=== PATIENT | female | born 1940 | race Caucasian/White ===

== ENCOUNTER 2018-03-09 16:32 | Observation (INO) ==
[2018-03-09] MEDS ORDERED: Naloxone 0.4 MG/ML INJ IVP PRN (21:11)
[2018-03-09] MEDS ORDERED: *HR* HYDROcodone/Acet 5/325 mg TABLET PO PRN (21:11)
[2018-03-09] MEDS ORDERED: traMADol 50 MG TABLET PO PRN (21:11)
[2018-03-09] MEDS ORDERED: Bupivacaine-MPF 0.25% 10 ML VIAL INFILT ONE (21:45)
--- NOTE | 2018-03-09 22:31 | Orthopedic Consult Note ---
Date of Encounter: 03/09/18 Time of Encounter: 22:26 History of Present Illness Chief complaint: Locked left knee HPI: Ms. Waddell is a 77 year old female who is scheduled for a left total knee arthroplasty at the [facility] on 04/16/2018. The patient has been t reated for an arthritic knee for a prolonged period of time. Patient has had previous episodes with the knee locked". After very short period of time the knee would be able to be fully extended. About 4 days ago the patient's knee "locked" and the patient has been unable to straighten the knee out since that time. This been causing a marked amount of pain. She was seen initially at [facility] and was transferred to [facility] for further evaluation and management. Pertinent orthopedic examination reveals a pleasant 77-year-old woman in minimal distress. Left knee is held flexed at about 95 degrees. No gross effusion. The knee was unable to be extended without any severe pain. Patella appears to be the primary concern. Neurosensory exam is normal. X-rays reveals a obvious flexed knee with marked amount of arthritis. Impression: Acute flexion contracture/"locked" left knee with superimposed osteoarthritis Treatment: The knee was examined and after informed consent was obtained the knee was instilled with 5 mL's of 2% lidocaine and 5% of 0.25% Marcaine utilizing sterile technique. After allowing for the local anesthetic to diminish the pain response the knee was manipulated with evangelical of extension. No excessive force was required. The patella appeared to be locked in the intercondylar region. Patient has a valgus appearing knee after the reduction. The knee was then placed into a knee immobilizer. Instructions given to the patient to minimize flexion beyond about 30 degrees and to utilize the knee immobilizer until seen and cleared by her attending surgeon at [facility]. Thank you for allowing me to seen care for Mrs. Waddell. Sincerely, Francisco Leo,DO Past Med Surg Social Fam HX - Past Medical History Medical history: arthritis, cancer, diabetes Additional medical history: Breast cancer Psychiatric history: depression - Past Surgical History Surgical History: breast surgery, hysterectomy, JALEEL/BSO, other Additional surgical history: Partial right mastectomy - Social History Smoking Status: Never smoker Smokeless Tobacco Status: No Alcohol use: none Drug use: none - Family History Mother Living Status: Cause of : Cancer Hx Family Cancer: Yes (Bladder) Father Living Status: Cause of : Cancer Hx Family Cancer: Yes (Esophogeal) Medications and Allergies Simvastatin [Zocor] 40 mg PO QPM 03/20/16 [History] Venlafaxine XR (24 HR) [Effexor XR] 75 mg PO QAM 03/20/16 [History] Allergy/AdvReac Type Severity Reaction Status Date / Time shellfish derived Allergy Anaphylaxis Verified 08/07/17 13:45 nitrofurantoin AdvReac Dizziness Verified 08/07/17 13:45 [From Furadantin] All Systems Reviewed: The remainder of the systems were reviewed and are negative Physical Exam - Constitutional Vitals: Temp Pulse Resp BP Pulse Ox 98.8 F 98 20 113/68 93 03/09/18 20:47 03/09/18 20:47 03/09/18 20:47 03/09/18 20:47 03/09/18 20:47 Results - Labs Labs: All other labs normal. - Diagnostic results Knee x-ray: image reviewed Consult Discharge Plan - Plan Referrals: Nevaeh Mcgovern MD [Primary Care Provider] -
--- NOTE | 2018-03-09 22:36 | Internal Med History&Physical ---
Date of Encounter: 03/09/18 Time of Encounter: 19:40 Internal Medicine - H&P: HPI Chief complaint: "locked left knee" Admitted From: Hospital to Hospital Transfer Plans for Post Hospital Care: Home History of present illness: Ms. Waddell is a 77 year old female who presents in transfer from [facility] ER for concerns of contracted left knee and a "locked knee". She is due to have total knee replacement at [facility] in mid March. However, she developed contracture of her left knee and has been unable to straighten her knee for the last 4 days. Pain has been increasing. She therefore came to ER today. ER staff contacted [facility] and recommended transfer to a local orthopedic surgeon for nonsurgical treatment and stabilization until she can have her surgery in mid March. She was therefore transferred here to [facility]. Upon my assessment of the patient, she is in no distress except for her left knee is contracted and she is unable to straighten it. She does have significan t pain from arthritis. She denies any numbness or weakness. She denies any other issues otherwise. In particular, she denies any chest pain, shortness of breath, vomiting, or diarrhea. After I saw patient and her , I called Dr. Leo to inform of the consult. He stated he would come in tonight to see and likely treat patient. Past Med Surg Social Fam HX - Past Medical History Attestation: Yes The following information was validated with the patient. Source: patient, old records reviewed Medical history: arthritis, cancer, diabetes Additional medical history: Breast cancer Psychiatric history: depression - Past Surgical History Surgical History: breast surgery, hysterectomy, JALEEL/BSO Additional surgical history: Partial right mastectomy - Social History Smoking Status: Never smoker Smokeless Tobacco Status: No Alcohol use: none Drug use: none Current living situation: Home Activity Level: Independent ambulation Recent Out of Country Travel Within the Last 8 Weeks: No - Family History Mother Living Status: Cause of : Cancer Hx Family Cancer: Yes (Bladder) Father Living Status: Cause of : Cancer Hx Family Cancer: Yes (Esophogeal) Internal Medicine - H&P: Meds Simvastatin [Zocor] 40 mg PO QPM 03/20/16 [History] Venlafaxine XR (24 HR) [Effexor XR] 75 mg PO QAM 03/20/16 [History] Allergy/AdvReac Type Severity Reaction Status Date / Time shellfish derived Allergy Anaphylaxis Verified 08/07/17 13:45 nitrofurantoin AdvReac Dizziness Verified 08/07/17 13:45 [From Furadantin] - Constitutional Constitutional: no chills, no fever(s) - EENT Eyes: no blurry vision, no change in vision Ears: no ear pain, no tinnitus Nose, mouth and throat: no nasal congestion, no sinus pressure - Cardiovascular Cardiovascular ROS IM: no chest pain, no dyspnea - Respiratory Respiratory: no cough, no hemoptysis, no chest congestion, no excessive phlegm production, no change in phlegm color - Gastrointestinal Gastrointestinal: no abdominal pain, no diarrhea, no hematemesis, no hematochezia, no melena, no nausea, no vomiting - Genitourinary Genitourinary: no dysuria, no flank pain, no hematuria - Musculoskeletal Musculoskeletal ROS IM: arthralgias, back pain, limited range of motion (left knee -- contracted) - Integumentary Integumentary IM: no rash - Neurological Neurological ROS: no dizziness, no focal weakness, no frequent falls, no headache(s) - Psychiatric Psychiatric: no anxiety, no depression - Endocrine Endocrine IM: no polydipsia, no polyuria - Allergic/Immunologic Allergic/Immunologic: no GI upset with certain foods - Constitutional Vitals: Temp Pulse Resp BP Pulse Ox 98.8 F 98 20 113/68 93 03/09/18 20:47 03/09/18 20:47 03/09/18 20:47 03/09/18 20:47 03/09/18 20:47 General appearance: Present: cooperative, A&O X 3, pleasant, answers questions appropriately Exam: see below - Head Head exam: Present: atraumatic, normal inspection - Eye Eye exam: Present: EOMI, PERRL. Absent: scleral icterus Pupils: Present: normal accommodation - ENT ENT exam: Present: mucous membranes dry, normal exam, normal oropharynx - Neck Neck exam general surgery: Present: full ROM, supple - Respiratory Respiratory exam: Present: CTAB. Absent: rales, rhonchi, wheezes - Cardiovascular Cardiovascular exam: Present: RRR, +S1, +S2. Absent: diastolic murmur, systolic murmur - GI/Abdominal GI/Abdominal exam: Present: normal bowel sounds, soft. Absent: hepatomegaly, mass, splenomegaly - Extremities Exam Extremities exam: Present: tenderness (left knee), warm, radial pulses palpable and symmetrical. Absent: calf tenderness, full ROM (left knee contracted), joint swelling - Back Exam Back exam: Absent: CVA tenderness (L), CVA tenderness (R) - Neurological Exam Neurological exam: Present: alert, CN II-XII intact, oriented X3, no focal deficits - Psychiatric Psychiatric exam: Present: normal affect, normal mood - Skin Skin exam: Present: dry, intact, warm - Assessment and plan (1) Flexion contracture of left knee Current Visit: Yes Status: Acute Assessment and plan: 1. Pain control ordered. 2. I called and spoke with Dr. Leo who said he will come in tonight to see and treat patient. 3. Likely D/C tomorrow with close follow up. (2) DVT prophylaxis Current Visit: Yes Status: Acute Assessment and plan: 1. Heparin SQ.
[2018-03-10] MEDS: Acetaminophen 325 MG TABLET PO PRN ×2 (00:49→09:56)
[2018-03-10] MEDS ORDERED: *HR* Heparin 5,000 UNIT/ML VIAL SQ SCH (06:00)
[2018-03-10 07:41] LABS: INR 1.1; Prothrombin Time 12.1 Seconds (9.4-12.1)
[2018-03-10 07:42] LABS: Activated Partial Thrombo Time 31.4 Seconds (26.0-36.0)
[2018-03-10 07:44] LABS: Basophils # 0.1 K/mcL (0.0-0.2); Basophils % 0.7 %; Eosinophils # 0.1 K/mcL (0.0-0.6); Eosinophils % 1.8 %; Hematocrit 39.2 % (35.3-44.9); Hemoglobin 13.1 g/dL (11.5-15.4); Immature Granulocytes % 0.1 % (0-4); Lymphocytes # 2.8 K/mcL (0.6-4.6); Lymphocytes % 40.5 %; Mean Corpuscular HGB Conc 33.4 g/dL (31.6-35.5); Mean Corpuscular Hemoglobin 28.6 pg (28.0-33.3); Mean Corpuscular Volume 85.6 fL (83.0-100.0); Mean Platelet Volume 11.7 fL (9.4-12.4); Monocytes # 0.7 K/mcL (0.0-1.3); Monocytes % 9.8 %; Neutrophils # 3.2 K/mcL (1.6-8.9); Platelet Count 174 K/mcL (140-400); Red Blood Count 4.58 M/mcL (3.82-4.97); Red Cell Distribution Width 12.7 % (11.5-14.5); Segmented Neutrophils % 47.1 %
[2018-03-10] MEDS ORDERED: Venlafaxine XR (24 HR) 75 MG CAP.ER.24H PO SCH (09:00)
[2018-03-10 09:21] LABS: BUN/Creatinine Ratio 22 (6-26); Blood Urea Nitrogen 10 mg/dL (8-23); Calcium 9.4 mg/dL (8.6-10.3); Carbon Dioxide 26 mEq/L (23-29); Chloride 103 mEq/L (98-107); Glucose 159 mg/dL (70-105); Magnesium 1.6 mg/dL (1.6-2.6); Osmolality,Calculated 288 (280-300); Potassium 3.5 mEq/L (3.5-5.1); Sodium 138 mEq/L (136-145); eGFR For Non-African Americans > 60 (> 60)
--- NOTE | 2018-03-10 14:39 | Discharge Summary ---
- NOTES TO OUTPATIENT PROVIDER Notes to Outpatient Provider: Patient will continue to keep knee immobilizer until seen at [facility]. Date of Encounter: 03/10/18 Time of Encounter: 14:37 - Discharge Diagnosis (1) Flexion contracture of left knee Priority: Primary Status: Inactive (2) DVT prophylaxis Priority: Secondary Status: Acute Hospital course: Ms. Waddell is a 77 year old female with past medical history of arthritis, diabetes came in after having a locked knee. Patient was planned to have total knee replacement in March. Patient has history of contracture of her left knee and has been unable to straighten it for last 4 days. Patient was seen by orthopedist and under local anesthesia her knee was manipulated and distorting extension and was put in knee immobilizer. Patient will keep immobilizer until seen at [facility]. Patient stable to be discharged to home. Discharge discussed with: patient - Time Spent with Patient Total time spent providing and/or coordinating discharge services: Less than 30 minutes - Discharge Medications Home Medications: Simvastatin [Zocor] 40 mg PO QPM 03/20/16 [History] Venlafaxine XR (24 HR) [Effexor XR] 75 mg PO QAM 03/20/16 [History] Allergies/Adverse Reactions: Allergy/AdvReac Type Severity Reaction Status Date / Time shellfish derived Allergy Anaphylaxis Verified 08/07/17 13:45 nitrofurantoin AdvReac Dizziness Verified 08/07/17 13:45 [From Furadantin] Date of admission: 03/09/18 18:52 Primary care physician: Nevaeh Mcgovern Consults: 03/09/18 21:18 Consult to Orthopedic Surgery [CONS] Routine Consulting Provider: Francisco Leo Reason for Consult: left knee "locked up"/contracted Call Completed: No - Constitutional Vitals: Temp Pulse Resp BP Pulse Ox 97.8 F 101 18 118/70 96 03/10/18 12:00 03/10/18 12:00 03/10/18 12:00 03/10/18 12:00 03/10/18 12:00 General appearance: Present: cooperative, A&O X 3, pleasant, answers questions appropriately Exam: General: In no acute distress. Conversant. Respiratory exam: CTAB. no accessory muscle use, rales, rhonchi, wheezes Cardiovascular exam: RRR, +S1, +S2. no murmur, gallop, rubs. GI/Abdominal exam: Non-tender, Non-distended, normal bowel sounds, soft, no peritoneal signs. Extremities exam: Lt leg with knee immobilizer. NV intact. LT leg full ROM. Neurological exam: CN II-XII intact, AO X3, no focal deficits. no pronater drift, facial droop, speech deficit Skin exam: No skin rash, ulcer, purpura or ecchymosis. - Patient Status Disposition: Home, Self-Care Condition: Fair - Discharge Instructions Follow Up With: Nevaeh Mcgovern MD [Primary Care Provider] - - Diet and Activity Activity: resume usual activities as tolerated
[2018-03-10 15:59] VITALS: BP 131/71
== END 2018-03-10 18:11 | disposition home or self-care (01) ==
LOC: 3NENU → SUATTDRO 18:52
PROVIDERS: ADMIT Internal Medicine; ATTEND Internal Medicine